=== PATIENT | male | born 1940 | race Caucasian/White ===

== ENCOUNTER 2017-06-28 08:38 | Emergency (ER) | payer MEDICARE, OTHER ==
[~2017-06-28] VITALS: Ht 170.2 cm; Wt 93.0 kg
[2017-06-28 08:41] VITALS: BP 155/77
[2017-06-28] MEDS ORDERED: predniSONE 20 MG TABLET ONE (09:09)
[2017-06-28] MEDS ORDERED: hydrOXYzine 10 MG TABLET ONE (09:09)
[2017-06-28] MEDS ORDERED: predniSONE 20 MG TABLET PO ONE (09:30)
[2017-06-28] MEDS ORDERED: hydrOXYzine 10 MG TABLET PO ONE (09:30)
== END 2017-06-28 09:15 | disposition home or self-care (01) ==
LOC: ER 08:42 → EDBD 08:42 → ER 09:15
DX: R21 Rash and other nonspecific skin eruption (principal); I10 Essential (primary) hypertension
CPT/HCPCS: 99283; A4606; J7512; Q0177; Z7610

== ENCOUNTER 2017-09-17 01:08 | Emergency (ER) | payer MEDICARE, OTHER ==
[~2017-09-17] VITALS: Ht 170.2 cm; Wt 90.7 kg
[2017-09-17 01:18] VITALS: BP 152/75
[2017-09-17] MEDS ORDERED: HYDROCODONE/APAP 5/325MG 1 EACH TABLET ONE (01:29)
[2017-09-17] MEDS ORDERED: HYDROCODONE/APAP 5/325MG 1 EACH TABLET PO ONE (01:30)
== END 2017-09-17 01:37 | disposition home or self-care (01) ==
LOC: ER 01:10
DX: G89.29 Other chronic pain (principal); M25.512 Pain in left shoulder; I10 Essential (primary) hypertension
CPT/HCPCS: A4606; Z7610

== ENCOUNTER 2017-11-12 09:25 | Emergency (ER) | payer MEDICARE, OTHER ==
[~2017-11-12] VITALS: Ht 170.2 cm; Wt 86.2 kg
[2017-11-12 09:31] VITALS: BP 135/53
--- NOTE | 2017-11-12 09:31 | NUR ---
PATIENT TO ED DT HIVES X 3 DAYS. PER PATIENT THIS HAS BEEN GOING ON AND OFF X 3 MOS. PATIENT IS AWAKE AND ALERT. NO SOB NOTED. VSS
[2017-11-12] MEDS ORDERED: DEXAMETHASONE SOD PHOSPHATE 10 MG/ML VIAL ONE (09:48)
[2017-11-12] MEDS ORDERED: DEXAMETHASONE SOD PHOSPHATE 10 MG/ML VIAL IM ONE (10:00)
[2017-11-12] MEDS ORDERED: hydrOXYzine PAMOATE 25 MG CAPSULE PO ONE (10:00)
== END 2017-11-12 10:01 | disposition home or self-care (01) ==
LOC: ER 09:31
DX: L50.1 Idiopathic urticaria (principal); I10 Essential (primary) hypertension
CPT/HCPCS: A4606; J1100; Q0177; Z7610